=== PATIENT | female | born 2000 | race Caucasian/White ===

== ENCOUNTER 2023-10-07 14:59 | Emergency (ER) | payer OTHER, SELFPAY ==
[2023-10-07 15:09] VITALS: BP 120/81; PULSE 88; RESP 16; TEMP 36.6; O2SAT 94; BMI 20.2
--- NOTE | 2023-10-07 15:51 | ED_ITS ---
HPI - General Adult General Date Seen: 10/07/23 <Mykel Marks DO - Last Filed: 10/07/23 16:07> Chief complaint: Abdominal Pain <Mykel Marks DO - Last Filed: 10/07/23 16:07> Stated complaint: acid reflux <Mykel Marks DO - Last Filed: 10/07/23 16:07> Time Seen by Provider: 10/07/23 15:14 <Mykel Marks DO - Last Filed: 10/07/23 16:07> Source: patient and family <Mykel Marks DO - Last Filed: 10/07/23 16:07> Mode of arrival: ambulatory <Mykel Marks DO - Last Filed: 10/07/23 16:07> Limitations: no limitations <Mykel Marks DO - Last Filed: 10/07/23 16:07> History of Present Illness HPI narrative: Patient is a 23-year-old female with no pertinent medical problems presenting to the emergency department for abdominal discomfort and gastric reflux. She states her symptoms 1st started several months ago after she had a viral infection. The infection resolved but she continued to have notable epigastric pain with constant reflux. She is also having lower abdominal discomfort also. She states she always feels like she has to burp and can never get comfortable. She also states every time she has a bowel movement she gets diffuse body discomfort and weakness and will again have a lot of discomfort. States she feels like she has to strain a lot when she has a bowel movement. She was seeing a GI provider last seen at the end of August and was told to start ta derrick MiraLax. She did not do this because she was concern it might make things worse. She states that even when she has diarrhea she will have the same symptoms. She does states over the past few days symptoms have been worsened she has been having worsening gastric reflux. It was 3 days ago when she stopped taking the omeprazole. She stopped because she did not think it was working and she is concerned was causing her constipation. She also has notes she has been having viral symptoms for the past few days. States is the 1st time she has had any upper respiratory symptoms since her previous episode that started all of this. She was at a [facility] their emergency department earlier today when she was given Bentyl, omeprazole, and Maalox. She states the Maalox helped for short amount time mother then symptoms started to come back. She has not noticed any other improvement. Does states she took some Pepcid this morning. An ultrasound was done at [facility] also showing a liver lesion that is most likely a hemangioma but they did recommend discussing a follow-up MRI with her primary care provider. Patient came here instead of [facility] because there was a long wait in the waiting room. <Mykel Marks DO - Last Filed: 10/07/23 16:07> Related Data Home medications: Home Medications Medication Instructions Recorded Confirmed dicyclomine 20 mg tablet 20 mg PO BID 10/07/23 10/07/23 omeprazole 40 mg capsule,delayed 40 mg PO DAILY 10/07/23 10/07/23 release ondansetron HCl 4 mg tablet 4 mg PO Q8H PRN 10/07/23 10/07/23 <Mykel Marks DO - Last Filed: 10/07/23 16:07> Allergies/adverse reactions: Allergies Allergy/AdvReac Type Severity Reaction Status Date / Time amoxicillin Allergy Severe Hives Verified 10/07/23 15:14 <Mykel Marks, DO - Last Filed: 10/07/23 16:07> Review of Systems Status of ROS: Reports: 10 or more systems reviewed and unremarkable except as noted in History and below <Mykel Marks DO - Last Filed: 10/07/23 16:07> PFSH PFSH Social History: Social History Smoking Status: Never smoker How often do you have a drink containing alcohol: never AUDIT-C Alcohol total score: 0 Non-prescribed substance use: denies use <Mykel Marks DO - Last Filed: 10/07/23 16:07> Exam 2 Narrative: Exam Narrative: Const: Well-nourished, Well-developed, appear to be in a moderate amount of discomfort Eyes: PERRL, no conjunctival injection, and symmetrical lids HENT: Atraumatic external nose and ears. Moist mucous membranes. Neck: Symmetric, trachea midline, No thyromegaly. CVS: RRR, No murmurs or gallops. Peripheral pulses 2+ and equal in all extremities RESP: Unlabored respiratory effort. Clear to auscultation bilaterally. GI: Mild epigastric tenderness, Nondistended, No rebound or guarding. MSK:Extremities w/o deformity, Normal Active ROM Skin: Warm, Dry. No rashes or lesions. Neuro: Normal Muscle tone, No focal neurological deficits. Psych: Awake, Alert, & Oriented x3. Appropriate mood and affect. <Mykel Marks DO - Last Filed: 10/07/23 16:07> Const: Vital Signs, click to edit/add: Vital Signs - 24 hr 10/07/23 15:09 Temperature 98 F Pulse Rate [Pulse Oximeter] 88 Respiratory Rate 16 Blood Pressure [Ri ght Upper Arm] 120/81 Pulse Oximetry 94 Oxygen Delivery Me thod Room Air <Mykel Marks DO - Last Filed: 10/07/23 16:07> Vital Signs, click to edit/add: Vital Signs - 24 hr 10/07/23 15:09 Temperature 98 F Pulse Rate [Pulse Oximeter] 88 Respiratory Rate 16 Blood Pressure [Ri ght Upper Arm] 120/81 Pulse Oximetry 94 Oxygen Delivery Me thod Room Air <Isael Hooks MD - Last Filed: 10/07/23 17:34> Course Course ED Course: I saw patient, she is feeling a little bit better after the fluids, and the GI cocktail. Her abdomen is soft, she really has minimal if any pain there is a little bit of pain in the right lower quadrant, which she says is just for me pushing too hard. We had a long discussion over the this cause, I do believe this is a combination of things including likely reflux, irritable bowel, and then the stress of the whole situation for this nice young lady. I do think that she would benefit from seeing her GI physician and likely doing an endoscopy, she can add an H2 napoleon along with the omeprazole, with aforementioned medications and follow- up. I did offer her a CT scan but she is declining at this time which I think is reasonable in this setting, but if she has worsening pain right lower quadrant blood in her stools or other worsening signs and symptoms then I think she she needs to be reassessed. she was comfortable with this. <Isael Hooks MD - Last Filed: 10/07/23 17:34> Vital Signs Vital signs: Initial Vital Signs Temperature 98 F 10/07/23 15:09 Temperature Source Temporal Artery Scan 10/07/23 15:09 Pulse Rate 88 10/07/23 15:09 Respiratory Rate 16 10/07/23 15:09 Blood Pressure 120/81 10/07/23 15:09 Blood Pressure Mean 94 10/07/23 15:09 Blood Pressure Position Sitting 10/07/23 15:09 Pulse Oximetry 94 10/07/23 15:09 Oxygen Delivery Method Room Air 10/07/23 15:09 Vital Signs Temperature 98 F 10/07/23 15:09 Pulse Rate 88 10/07/23 15:09 Respiratory Rate 16 10/07/23 15:09 Blood Pressure 120/81 10/07/23 15:09 Pulse Oximetry 94 10/07/23 15:09 Oxygen Delivery Method Room Air 10/07/23 15:09 Temperature 98 F 10/07/23 15:09 Pulse Rate 88 10/07/23 15:09 Respiratory Rate 16 10/07/23 15:09 Blood Pressure 120/81 10/07/23 15:09 Pulse Oximetry 94 10/07/23 15:09 Oxygen Delivery Method Room Air 10/07/23 15:09 <Mykel Marks, DO - Last Filed: 10/07/23 16:07> Initial Vital Signs Temperature 98 F 10/07/23 15:09 Temperature Source Temporal Artery Scan 10/07/23 15:09 Pulse Rate 88 10/07/23 15:09 Respiratory Rate 16 10/07/23 15:09 Blood Pressure 120/81 10/07/23 15:09 Blood Pressure Mean 94 10/07/23 15:09 Blood Pressure Position Sitting 10/07/23 15:09 Pulse Oximetry 94 10/07/23 15:09 Oxygen Delivery Method Room Air 10/07/23 15:09 Vital Signs Temperature 98 F 10/07/23 15:09 Pulse Rate 88 10/07/23 15:09 Respiratory Rate 16 10/07/23 15:09 Blood Pressure 120/81 10/07/23 15:09 Pulse Oximetry 94 10/07/23 15:09 Oxygen Delivery Method Room Air 10/07/23 15:09 Temperature 98 F 10/07/23 15:09 Pulse Rate 88 10/07/23 15:09 Respiratory Rate 16 10/07/23 15:09 Blood Pressure 120/81 10/07/23 15:09 Pulse Oximetry 94 10/07/23 15:09 Oxygen Delivery Method Room Air 10/07/23 15:09 <Isael Hooks MD - Last Filed: 10/07/23 17:34> Medications Administered Medications: Discontinued Medications Generic Name Dose Route Start Last Admin Trade Name Freq PRN Reason Stop Dose Admin Lactated Ringer's 1,000 mls @ 1,000 mls/hr 10/07/23 15:38 10/07/23 16:14 Lactated Ringers 1000 Ml IV 10/07/23 16:37 1,000 mls/hr .Q1H ONE Administration Lidocaine/Aluminum/Magnesium/Simeth 30 ml 10/07/23 15:38 10/07/23 15:55 Gi Cocktail (Visc Lido/Antacid) 30 Ml PO 10/07/23 15:39 30 ml ONCE ONE Administration Ondansetron HCl 4 mg 10/07/23 15:38 10/07/23 16:14 Ondansetron 2 Mg/Ml Inj IVP 10/07/23 15:39 4 mg ONCE ONE Administration <Mykel Marks DO - Last Filed: 10/07/23 16:07> Discontinued Medications Generic Name Dose Route Start Last Admin Trade Name Freq PRN Reason Stop Dose Admin Lactated Ringer's 1,000 mls @ 1,000 mls/hr 10/07/23 15:38 10/07/23 16:14 Lactated Ringers 1000 Ml IV 10/07/23 16:37 1,000 mls/hr .Q1H ONE Administration Lidocaine/Aluminum/Magnesium/Simeth 30 ml 10/07/23 15:38 10/07/23 15:55 Gi Cocktail (Visc Lido/Antacid) 30 Ml PO 10/07/23 15:39 30 ml ONCE ONE Administration Ondansetron HCl 4 mg 10/07/23 15:38 10/07/23 16:14 Ondansetron 2 Mg/Ml Inj IVP 10/07/23 15:39 4 mg ONCE ONE Administration <Isael Hooks MD - Last Filed: 10/07/23 17:34> Medical Decision Making MDM Narrative Medical decision making narrative: Patient is a 23-year-old female presenting to the emergency department for abdominal complaints. She has been worked up for this this morning and does see a GI provider. Will not see them again until November. Symptoms have been getting worse since she stopped the omeprazole and since she started having upper respiratory viral symptoms. Her symptoms today could be a combination of stopping the omeprazole and her viral infection. It is clear that she already has some GI issues and I do not believe it takes much to exacerbate her symptoms. Will repeat labs. Her mom believes hydrating the patient will help/does not vary with eat or drink much due to the discomfort. She will get 1 L of lactated Ringer's. Since she is having these respiratory symptoms also test for COVID/flu/RSV. Will give the patient a GI cocktail CT of it improves her symptoms more along with Zofran. With the more diffuse abdominal discomfort she is also having we did speak speak about a CT scan. I explained the risks and benefits and how I do not think a CT scan will likely show any diagnostic but can be done to rule out any other abnormalities. At this time she would like to try the medications 1st and lab work before doing any further imaging. Lab work is pending at this time will be signed out to my colleague Dr. Hooks <Mykel Marks DO - Last Filed: 10/07/23 16:07> Lab Data Lab results reviewed: Yes I reviewed the patient's lab results <Isael Hooks MD - Last Filed: 10/07/23 17:34> Labs: Lab Results 10/07/23 10/07/23 Range/Units 16:00 16:10 WBC 11.37 H (4.50-11.00) K/uL RBC 5.02 (4.00-5.20) m/uL Hgb 14.7 (12.0-16.0) gm/dL Hct 43.2 (33.0-51.0) % MCV 86 (80-100) fL MCH 29 (26-34) pg MCHC 34 (32-36) gm/dL RDW Coeff of Jamey 12.1 (11.5-15.5) % Plt Count 185 (140-440) K/uL Neut % (Auto) 68.1 (42.0-72.0) % Lymph % (Auto) 24.8 (20-44) % Mcdowell % (Auto) 5.6 (0.0-11.0) % Eos % (Auto) 0.4 (0.0-7.0) % Baso % (Auto) 0.2 (0.0-3.0) % Neut # (Auto) 7.70 H (1.7-7.0) K/uL Lymph # (Auto) 2.80 (0.90-2.90) K/uL Mcdowell # (Auto) 0.60 (0.00-0.90) K/UL Eos # (Auto) 0.00 (0.00-0.50) K/uL Baso # (Auto) 0.00 (0.00-0.30) K/uL Abs Immat Gran (auto) 0.10 (0.00-0.30) K/uL Imm/Tot Granulo (auto) 0.9 % Sodium 141 (135-149) mmol/L Potassium 3.7 (3.6-5.1) mmol/L Chloride 102 (96-114) mmol/L Carbon Dioxide 29 (20-32) mmol/L Anion Gap 10 (7-15) mEq/L BUN 9 (5-24) mg/dL Creatinine 0.7 (0.5-1.5) mg/dL Estimated Creat Clear 111.88 Estimated GFR 125 ml/min Glucose 80 (60-115) mg/dL Calcium 10.5 (8.4-10.6) mg/dL Total Bilirubin 0.7 (0.1-1.5) mg/dL AST 26 (12-35) U/L ALT 16 (4-35) U/L Alkaline Phosphatase 63 (40-150) U/L Total Protein 9.4 H (6.0-8.3) g/dL Albumin 5.5 H (3.3-5.0) g/dL Lipase 61 (23-300) U/L SARS-CoV-2 (PCR) Negative SARS-CoV-2 (Negative) Influenza Type A (PCR) Negative PCR FLU A (Negative) Influenza Type B (PCR) Negative PCR FLU B (Negative) RSV (PCR) Negative PCR RSV (Negative) <Mykel Marks, DO - Last Filed: 10/07/23 16:07> Lab Results 10/07/23 10/07/23 Range/Units 16:00 16:10 WBC 11.37 H (4.50-11.00) K/uL RBC 5.02 (4.00-5.20) m/uL Hgb 14.7 (12.0-16.0) gm/dL Hct 43.2 (33.0-51.0) % MCV 86 (80-100) fL MCH 29 (26-34) pg MCHC 34 (32-36) gm/dL RDW Coeff of Jamey 12.1 (11.5-15.5) % Plt Count 185 (140-440) K/uL Neut % (Auto) 68.1 (42.0-72.0) % Lymph % (Auto) 24.8 (20-44) % Mcdowell % (Auto) 5.6 (0.0-11.0) % Eos % (Auto) 0.4 (0.0-7.0) % Baso % (Auto) 0.2 (0.0-3.0) % Neut # (Auto) 7.70 H (1.7-7.0) K/uL Lymph # (Auto) 2.80 (0.90-2.90) K/uL Mcdowell # (Auto) 0.60 (0.00-0.90) K/UL Eos # (Auto) 0.00 (0.00-0.50) K/uL Baso # (Auto) 0.00 (0.00-0.30) K/uL Abs Immat Gran (auto) 0.10 (0.00-0.30) K/uL Imm/Tot Granulo (auto) 0.9 % Sodium 141 (135-149) mmol/L Potassium 3.7 (3.6-5.1) mmol/L Chloride 102 (96-114) mmol/L Carbon Dioxide 29 (20-32) mmol/L Anion Gap 10 (7-15) mEq/L BUN 9 (5-24) mg/dL Creatinine 0.7 (0.5-1.5) mg/dL Estimated Creat Clear 111.88 Estimated GFR 125 ml/min Glucose 80 (60-115) mg/dL Calcium 10.5 (8.4-10.6) mg/dL Total Bilirubin 0.7 (0.1-1.5) mg/dL AST 26 (12-35) U/L ALT 16 (4-35) U/L Alkaline Phosphatase 63 (40-150) U/L Total Protein 9.4 H (6.0-8.3) g/dL Albumin 5.5 H (3.3-5.0) g/dL Lipase 61 (23-300) U/L SARS-CoV-2 (PCR) Negative SARS-CoV-2 (Negative) Influenza Type A (PCR) Negative PCR FLU A (Negative) Influenza Type B (PCR) Negative PCR FLU B (Negative) RSV (PCR) Negative PCR RSV (Negative) <Isael Hooks MD - Last Filed: 10/07/23 17:34> Discharge Plan Discharge Clinical Impression: Acid reflux Abdominal pain Qualifiers: Abdominal location: epigastric Qualified Code(s): R10.13 - Epigastric pain <Mykel Marks DO - Last Filed: 10/07/23 16:07> Patient Disposition: Home, Self-Care <Mykel Marks DO - Last Filed: 10/07/23 16:07> Condition: Improved <Mykel Marks DO - Last Filed: 10/07/23 16:07> Instructions: Gastritis (DC), GERD (Gastroesophageal Reflux Disease) (DC), Acute Abdominal Pain (DC), Abdominal Pain (ED) <Mykel Marks DO - Last Filed: 10/07/23 16:07> Additional Instructions: Continue take omeprazole as previously prescribed. You can use antacids as needed help with the discomfort. It would be reasonable to speak to your GI specialist about a upper endoscopy. Return to emergency department for new or worsening symptoms. as we discussed you may use some H2 blockers like Pepcid with the omeprazole. Calling you GI folks and getting set up for a visit and likely endoscopy is a good idea, I gave you a note to be off work for the next 48 hours to get caught up on your sleep. Continue with fluids and try to titrate down on her caffeine. If you developed more right lower quadrant pain start throwing up blood, or dark black stools, then I am worried about bleeding or an ulcer need to come back. <Mykel Marks DO - Last Filed: 10/07/23 16:07> Activity Level: Light activity <Mykel Marks DO - Last Filed: 10/07/23 16:07> Light activity <Isael Hooks MD - Last Filed: 10/07/23 17:34> Prescriptions: No Action dicyclomine 20 mg tablet 20 mg PO BID Rx Instructions: 2x daily x10 days omeprazole 40 mg capsule,delayed release(DR/EC) 40 mg PO DAILY ondansetron HCl 4 mg tablet 4 mg PO Q8H PRN <Mykel Marks DO - Last Filed: 10/07/23 16:07> Stand Alone Forms: [facility] Info Instructions <Mykel Marks DO - Last Filed: 10/07/23 16:07>
[2023-10-07] MEDS: GI COCKTAIL (VISC LIDO/ANTACID) 30 ML PO (15:55)
[2023-10-07] MEDS: ONDANSETRON 2 MG/ML inj 4 MG IVP (16:14)
[2023-10-07] MEDS: LACTATED RINGERS 1000 ML 1,000 ML IV (16:14)
[2023-10-07 16:20] LABS: Basophils Percent Auto 0.2 % (0.0-3.0); Eosinophils Percent Auto 0.4 % (0.0-7.0); Hematocrit 43.2 % (33.0-51.0); Hemoglobin* 14.7 gm/dL (12.0-16.0); Immature Granulocytes Pct Auto 0.9 %; Lymphocytes Percent Auto 24.8 % (20-44); Mean Corpuscular HGB Conc 34 gm/dL (32-36); Mean Corpuscular Hemoglobin 29 pg (26-34); Mean Corpuscular Volume 86 fL (80-100); Monocytes Percent Auto 5.6 % (0.0-11.0); Neutrophils Percent Auto 68.1 % (42.0-72.0); Platelet Count* 185 K/uL (140-440); RDW Coefficient of Variation % 12.1 % (11.5-15.5); Red Blood Count 5.02 m/uL (4.00-5.20); White Blood Count* 11.37 K/uL (4.50-11.00)
[2023-10-07 16:24] LABS: Slide Review Reflex No
[2023-10-07 16:33] LABS: Albumin* 5.5 g/dL (3.3-5.0)
[2023-10-07 16:34] LABS: Chloride* 102 mmol/L (96-114); Potassium* 3.7 mmol/L (3.6-5.1); Sodium* 141 mmol/L (135-149)
[2023-10-07 16:36] LABS: Anion Gap 10 mEq/L (7-15); Bilirubin Total* 0.7 mg/dL (0.1-1.5); Carbon Dioxide* 29 mmol/L (20-32); Creatinine* 0.7 mg/dL (0.5-1.5); Est. Creatinine Clearance* 111.88; Estimated Glomerular Filt Rate 125 ml/min
[2023-10-07 16:37] LABS: Alanine Aminotransferase* 16 U/L (4-35); Alkaline Phosphatase* 63 U/L (40-150); Aspartate Amino Transferase* 26 U/L (12-35); Blood Urea Nitrogen* 9 mg/dL (5-24); Calcium* 10.5 mg/dL (8.4-10.6); Glucose* 80 mg/dL (60-115); Lipase* 61 U/L (23-300); Total Protein* 9.4 g/dL (6.0-8.3)
[2023-10-07 16:52] LABS: PCR FLU A Negative PCR FLU A (Negative); PCR FLU B Negative PCR FLU B (Negative); PCR RSV Negative PCR RSV (Negative); SARS PCR* Negative SARS-CoV-2 (Negative)
== END 2023-10-07 17:45 | disposition home or self-care (01) ==
PROVIDERS: Student in an Organized Health Care Education/Training Program; Emergency Provider Family Medicine
DX: R10.13 Epigastric pain (principal)
CPT/HCPCS: 36415; 80053; 83690; 85025; 87631; 96374; 99283; 99284; A9270; J2405; J7120

== ENCOUNTER 2024-02-23 15:12 | Emergency (ER) | payer OTHER, SELFPAY ==
[2024-02-23 15:30] VITALS: BP 131/76; PULSE 66; RESP 22; TEMP 37.1; O2SAT 100; BMI 19.4
--- NOTE | 2024-02-23 16:24 | ED_ITS ---
HPI - Anxiety General Time Seen by Provider: 16:24 Date Seen: 02/23/24 Chief Complaint: Anxiety Stated Complaint: anxiety Time Seen by Provider: 02/23/24 16:23 Source: patient and RN notes reviewed Mode of arrival: ambulatory Limitations: no limitations History of Present Illness HPI narrative: This 24-year-old female is coming in accompanied by her mom with concern of anxiety. She notes that she just feels that she has been in almost a continual panic attack or anxiety event for the last few days. She states that she continues to have health problems that come up, things are happening to people around her that worsen her anxiety. These are all things that provoke her to be anxious. She worries about her own health, worries that people around her are g oing to . She has gotten to the point where she is so anxious she feels like she is almost observing her life, feels like she is disconnected. She perseverates over thoughts of people dying or her dying herself as part of her anxiety. She is not suicidal, has no plan of dying, does not want to . She admits that she is becoming depressed, rec stone crying when I talk about it. She notes that she is not getting enough sleep. 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 She is busy and just feels overwhelmed with her anxiety. She briefly was on Prozac for a month in college, only had a month's worth and was told to follow-up when she got home, never could make this happen and thus did not stay on the medicine. She felt that she was able to calm herself down up until this point. She has not done counseling or therapy for her anxiety. complaint: anxiety Related Data Home Medications ?Medication ?Instructions ?Recorded ?Confirmed dicyclomine 20 mg tablet 20 mg PO BID 10/07/23 10/07/23 omeprazole 40 mg capsule,delayed 40 mg PO DAILY 10/07/23 02/23/24 release ondansetron HCl 4 mg tablet 4 mg PO Q8H PRN 10/07/23 10/07/23 Previous Rx's ?Medication ?Instructions ?Recorded fluoxetine 20 mg tablet 20 mg PO DAILY #30 tabs 02/23/24 hydroxyzine pamoate 25 mg capsule 25 mg PO TID PRN #20 caps 02/23/24 Allergies Allergy/AdvReac Type Severity Reaction Status Date / Time amoxicillin Allergy Severe Hives Verified 10/07/23 15:14 Review of Systems Narrative: As per HPI. PFSH [facility] Social History Smoking Status: Never smoker How often do you have a drink containing alcohol: never AUDIT-C Alcohol total score: 0 Non-prescribed substance use: denies use Exam Const: Vital Signs, click to edit/add: Vital Signs - 24 hr 02/23/24 15:30 Temperature 98.8 F Pulse Rate [Pulse Oximeter] 66 Respiratory Rate 22 Blood Pressure [Ri ght Upper Arm] 131/76 Pulse Oximetry 100 Oxygen Delivery Me thod Room Air Gretchen is a 24-year-old female that is alert, interactive, no apparent distress. She does breakdown crying, is tearful. She has good eye contact. Denies any hallucinations. Thought content is good, she has good insight into her situation. She does have anxiety at times, seems to have depressed mood and is tearful. No suicidality, no homicidality. Pupils are equal round reactive, sclera clear, symmetrical facial function. Speech is normal. Neck is supple, no adenopathy, no thyromegaly masses or nodules. TMs canals normal. Lungs clear good air entry no wheezing or crackles. CV regular rate and rhythm no murmur. Patient is ambulatory into the ED of her own accord. Documenting provider has reviewed patient's vital signs: yes Course Course ED Course: Discussed medication management. Reviewed with her that we do not typically start antianxiety or antidepressants out of the ER. She did tolerate Prozac before, remembers that she had diminished appetite. She also endorses that she has lost some weight due to her emotional status. Reviewed with her that that is typical with Prozac but that side effect usually abates and people normalize there weight once the mental health is stabilized. I do feel compelled to offer her Prozac, feel that she needs to be started on something and it will not happen expeditiously outpatient. We also discussed acute management, she is feeling quite anxious, overwhelmed right now. Here we discussed Ativan and benzodiazepines but discussed that they are addictive. We could have her try to use some p.r.n. hydroxyzine at home. We can give her a dose here. We did discuss that it is sedating. She started crying more, thinking we would be putting her to sleep. Reviewed with her that that is not what happens, it can just make her tired. We also reviewed that the Prozac takes time to reach affect, can be weeks. She and I went over side effects and benefits of the medicines. Vital Signs Vital signs: Initial Vital Signs Temperature 98.8 F 02/23/24 15:30 Temperature Source Temporal Artery Scan 02/23/24 15:30 Pulse Rate 66 02/23/24 15:30 Respiratory Rate 22 02/23/24 15:30 Blood Pressure 131/76 02/23/24 15:30 Blood Pressure Mean 94 02/23/24 15:30 Pulse Oximetry 100 02/23/24 15:30 Oxygen Delivery Method Room Air 02/23/24 15:30 Vital Signs Temperature 98.8 F 02/23/24 15:30 Pulse Rate 66 02/23/24 15:30 Respiratory Rate 22 02/23/24 15:30 Blood Pressure 131/76 02/23/24 15:30 Pulse Oximetry 100 02/23/24 15:30 Oxygen Delivery Method Room Air 02/23/24 15:30 Temperature 98.8 F 02/23/24 15:30 Pulse Rate 66 02/23/24 15:30 Respiratory Rate 22 02/23/24 15:30 Blood Pressure 131/76 02/23/24 15:30 Pulse Oximetry 100 02/23/24 15:30 Oxygen Delivery Method Room Air 02/23/24 15:30 Discharge Plan Discharge Clinical Impression: Depressed mood Anxiety disorder Qualifiers: Anxiety disorder type: unspecified anxiety disorder Qualified Code(s): F41.9 - Anxiety disorder, unspecified Patient Disposition: Home, Self-Care Condition: Stable Instructions: Depression (ED), Generalized Anxiety Disorder (ED) Additional Instructions: Start fluoxetine tomorrow morning. If for some reason it does make you tired, switch over to taking it in the evening. It is more of an activating medicine for most, thus, recommend taking it in the morning. Can use the hydroxyzine as needed for acute anxiety or panic attacks but should not operate machinery as it can be sedating, no driving after use of this. Need to contact her primary clinic, get scheduled for follow-up within the next couple weeks. You will need to get more medication from your primary care provider. I would also highly recommend that they get a referral in for therapy or counseling for you for your anxiety. If you do feel your mental health is worsening, it is always recommended you seek re-evaluation. Be aware that the fluoxetine/ Prozac can take weeks to reach affect. Activity Level: No Restrictions Discharge Diet: Regular Prescriptions: New fluoxetine 20 mg tablet 20 mg PO DAILY Qty: 30 0RF hydroxyzine pamoate 25 mg capsule 25 mg PO TID PRNQty: 20 0RF No Action dicyclomine 20 mg tablet 20 mg PO BID Rx Instructions: 2x daily x10 days omeprazole 40 mg capsule,delayed release(DR/EC) 40 mg PO DAILY ondansetron HCl 4 mg tablet 4 mg PO Q8H PRN Follow Up/Referrals: Provider,Not a Local [Primary Care Provider] - Stand Alone Forms: [employer] Info Instructions
[2024-02-23] MEDS: hydrOXYzine pamoate 25 MG CAPSULE PO (17:18)
== END 2024-02-23 17:35 | disposition home or self-care (01) ==
LOC: ED 17:15
PROVIDERS: Emergency Provider Family Medicine
DX: F41.9 Anxiety disorder, unspecified (principal)
CPT/HCPCS: 99283; A9270